=== PATIENT | female | born 1995 | race Hispanic/Latino ===

== ENCOUNTER 2019-07-02 11:30 | Outpatient (CLI) | payer BC, OTHER ==
--- NOTE | 2019-07-02 13:05 | ULT ---
Obstetrical ultrasound: 07/02/2019 COMPARISON: None HISTORY: 24-year-old female undergoing assessment of the anatomy TECHNIQUE: Multiplanar grayscale sonographic imaging of the gravid uterus obtained. FINDINGS: The cervical length is approximately 3.4 cm. Single live intrauterine gestation present dem onstrating a vertex presentation. Placenta is located posteriorly, demonstrating no evidence for previa or abruption. spine, bladder, stomach, four-chamber heart view, and kidneys appear grossly unremarkable. heart rate is 149 bpm. Umbilical cord insertion, intracranial contents, and nose/lips appear un remarkable. A three-vessel cord is noted. Amniotic fluid index is 13.2 cm. biometry: Biparietal diameter 4.8 cm 20 weeks 4 days Head circumference 18.5 cm 20 weeks 6 days Abdominal circumference 15.9 cm 21 weeks 0 days Femur length 2.6 cm 21 weeks 3 days Average age based on ultrasound is 21 weeks 0 days. Estimated date of delivery is to 02/25/2020 Estimated weight is 400 g +/- 59 g IMPRESSION: Single live intrauterine gestation as detailed above.
== END 2019-07-02 11:31 | disposition home or self-care (01) ==
LOC: SCSULT 11:30
PROVIDERS: ATTEND Family Medicine
DX: Z34.82 Encounter for supervision of other normal pregnancy, second trimester (principal); Z3A.21 21 weeks gestation of pregnancy
CPT/HCPCS: 76805

== ENCOUNTER 2019-10-30 15:20 | Inpatient (IN) | payer BC, OTHER ==
[~2019-10-30 15:20] MED LIST: Lidocaine 2% MPF 10 ML AMP (For Epidural Use) ONE
[2019-10-30 16:04] VITALS: BMI 31.0
[2019-10-30] MEDS ORDERED: Methylergonovine 0.2 MG/ML VIAL IM PRN (16:18)
[2019-10-30] MEDS ORDERED: Promethazine HCl 25 MG/ML VIAL IM PRN ×2 (16:18→17:37)
[2019-10-30] MEDS ORDERED: Misoprostol 200 MCG TAB PR PRN (16:18)
[2019-10-30] MEDS ORDERED: Ondansetron PF 4 MG/2 ML Vial IVP PRN ×2 (16:18→17:37)
[2019-10-30] MEDS ORDERED: hydrALAZINE 20 MG/ML VIAL SLOW IVP PRN (16:18)
[2019-10-30] MEDS ORDERED: HYDROcodone/Acetaminophen 5/325 mg Tablet PO PRN (16:18)
[2019-10-30] MEDS ORDERED: Ibuprofen 800 MG TAB PO PRN (16:18)
[2019-10-30] MEDS ORDERED: Butorphanol Tartrate 1 MG/ML VIAL SLOW IVP PRN (16:18)
[2019-10-30] MEDS ORDERED: Carboprost 250 MCG/ML AMP IM PRN (16:18)
[2019-10-30] MEDS ORDERED: Diphenoxylate HCl/Atropine Tablet PO PRN (16:18)
[2019-10-30] MEDS ORDERED: Lidocaine 1% (PF) 30 ML VIAL SC PRN (16:18)
[2019-10-30] MEDS ORDERED: NS w/ Oxytocin 10 units 500 ML IV SCH ×2 (16:30)
[2019-10-30] MEDS: Lactated Ringer's 1,000 ML IV SCH ×2 (16:35→20:20)
[2019-10-30 16:45] LABS: Hemoglobin 11.1 g/dL (12.0-16.0); Mean Corpuscular HGB CONC 34.4 g/dL (32.0-36.0); Mean Corpuscular Volume 90.1 fL (78.0-98.0); Mean Platelet Volume 8.7 fL (7.4-10.4); Platelet Count 234 thou/uL (130-400); RBC Distribution Width 11.8 % (11.5-14.5); Red Blood Cell (RBC) Count 3.59 mill/uL (4.20-5.40); White Blood Cell (WBC) Count 9.4 thou/uL (4.8-10.8)
[2019-10-30] MEDS ORDERED: Fentanyl 4 mcg/Bup 0.1% Cadd 100 ML ONE (16:57)
[2019-10-30 17:32] LABS: HBSAg Index 0.27 S/CO (0-0.99); Hep B Surf Ag Non-Reactive S/CO (NonReactive); Syphilis Antibody Nonreactive (Nonreactive); Syphilis Antibody Index 0.06 S/CO (<1.00 Non-Reactive)
[2019-10-30] MEDS ORDERED: Lactated Ringer's 500 ML IV PRN (17:37)
[2019-10-30] MEDS ORDERED: ePHEDrine/0.9% NaCl/PF SYRINGE 50 mg/10 ml SLOW IVP PRN (17:37)
[2019-10-30] MEDS ORDERED: Acetaminophen 325 MG TAB PO PRN (17:37)
[2019-10-30] MEDS ORDERED: Naloxone HCl 0.4 mg/ml Vial IVP PRN ×2 (17:37)
[2019-10-30] MEDS ORDERED: diphenhydrAMINE 50 MG/ML VIAL IVP PRN (17:37)
[2019-10-30] MEDS ORDERED: Fentanyl 4 mcg/Bupivacaine 0.1% Cassette 100 ML EPIDURAL SCH (17:45)
[2019-10-30] MEDS ORDERED: Communication Order-Pharmacy FS SCH (17:45)
[2019-10-30] MEDS: NS / Oxytocin 40 units/1000ml 1,000 ML IV PRN (23:01)
[2019-10-31] MEDS: NS / Oxytocin 40 units/1000ml 1,000 ML IV PRN (00:17)
[2019-10-31] MEDS ORDERED: diphenhydrAMINE 25 MG CAP PO PRN (01:36)
[2019-10-31] MEDS ORDERED: Promethazine HCl 25 MG/ML VIAL IM PRN (01:36)
[2019-10-31] MEDS ORDERED: Milk Of Magnesia 30 ML UDCUP PO PRN (01:36)
[2019-10-31] MEDS ORDERED: hydrALAZINE 20 MG/ML VIAL SLOW IVP PRN (01:36)
[2019-10-31] MEDS ORDERED: Lanolin Ointment 7 GM TUBE TOP PRN (01:36)
[2019-10-31] MEDS ORDERED: Ondansetron PF 4 MG/2 ML Vial IVP PRN (01:36)
[2019-10-31] MEDS ORDERED: HYDROcodone/Acetaminophen 5/325 mg Tablet PO PRN (01:36)
[2019-10-31] MEDS ORDERED: NS / Oxytocin 40 units/1000ml 1,000 ML IV SCH (01:36)
[2019-10-31] MEDS ORDERED: Bisacodyl 10 MG SUPP PR PRN (01:36)
[2019-10-31] MEDS ORDERED: Benzocaine-Menthol 82.5 ML CAN TOP PRN (01:36)
[2019-10-31] MEDS: Lactated Ringer's 1,000 ML IV SCH (02:24)
[2019-10-31] MEDS ORDERED: Ibuprofen 800 MG TAB PO SCH (06:00)
[2019-10-31] MEDS: Ferrous Sulfate 325 MG TAB PO SCH ×2 (07:29→18:28)
[2019-10-31] MEDS: Prenatal Vitamin 1 TAB PO SCH (08:20)
[2019-10-31] MEDS: Ibuprofen 800 MG TAB PO SCH ×2 (08:20→15:40)
[2019-10-31] MEDS: Docusate Calcium (SURFAK) 240 MG CAP PO SCH ×2 (08:21→21:42)
[2019-10-31] MEDS ORDERED: Adacel (T-DAP) 0.5 ML SYRINGE IM ONE (09:00)
[2019-10-31] MEDS: HYDROcodone/Acetaminophen 5/325 mg Tablet PO PRN (22:08)
[2019-11-01] MEDS: Ibuprofen 800 MG TAB PO SCH ×2 (00:12→09:04)
[2019-11-01] MEDS: HYDROcodone/Acetaminophen 5/325 mg Tablet PO PRN (05:17)
[2019-11-01 08:10] VITALS: BP 109/76; TEMP 98.3
[2019-11-01] MEDS: Prenatal Vitamin 1 TAB PO SCH (09:04)
[2019-11-01] MEDS: Docusate Calcium (SURFAK) 240 MG CAP PO SCH (09:04)
[2019-11-01] MEDS: Ferrous Sulfate 325 MG TAB PO SCH (09:05)
== END 2019-11-01 11:06 | disposition home or self-care (01) | DRG 807 ==
LOC: L&D/OP 15:20 → L&D 19:50 → 3SE 10-31 02:05
PROVIDERS: ADMIT Family Medicine; ATTEND Family Medicine
PROC: 10E0XZZ Delivery of Products of Conception, External Approach (ICD-10-PCS; principal; 2019-10-30)
PROC: 0HQ9XZZ Repair Perineum Skin, External Approach (ICD-10-PCS; 2019-10-30)
PROC: 3E0234Z Introduction of Serum, Toxoid and Vaccine into Muscle, Percutaneous Approach (ICD-10-PCS; 2019-11-01)
DX: O70.0 First degree perineal laceration during delivery (principal); Z37.0 Single live birth; Z3A.39 39 weeks gestation of pregnancy; Z23 Encounter for immunization
CPT/HCPCS: 51702; 85027; 86780; 86850; 86900; 86901; 87340; 90715; 99285; J2001; J2405; J2590